=== PATIENT | male | born 1970 | race African-American/Black ===

== ENCOUNTER 2017-10-29 17:29 | Inpatient (IN) | payer OTHER ==
[~2017-10-29] VITALS: Ht 193 cm; Wt 199.0 kg
[2017-10-29 18:28] LABS: HEMATOCRIT 45.8 % (38.0-50.0); MCH 28.4 PG (29.0-34.0); MCHC 32.8 G/DL (30.0-36.0); MCV 86.7 FL (86-99); PLATELET COUNT 269 K/uL (156-360); RBC DIS.WIDTH-CV 14.8 % (11.8-14.6); RBC DIS.WIDTH-SD 46.7 % (39-53); RED BLOOD COUNT 5.28 M/uL (4.00-5.50); WHITE BLOOD COUNT 11.1 K/uL (4.1-10.2)
[2017-10-29 18:36] LABS: CHLORIDE 99 mEq/L (99-109); POTASSIUM 3.6 mEq/L (3.7-5.4); SODIUM 140 mEq/L (136-147)
[2017-10-29 18:38] LABS: GLUCOSE 112 mg/dL (70-99)
[2017-10-29 18:41] LABS: CREATININE 1.1 mg/dL (0.6-1.3)
[2017-10-29 18:42] LABS: UREA NITROGEN (BUN) 14 mg/dL (9-23)
[2017-10-29 18:43] LABS: GFR ESTIMATE (CALCULATED) > 59 mL/min/ (58.99-99999)
[2017-10-29 18:47] LABS: TROP-I INTERPRETATION NEGATIVE; TROPONIN-I 0.05 ng/mL (0.0-0.30)
[2017-10-29 20:02] LABS: THYROTROPIN (TSH) 1.5 MIU/L (0.4-5.5)
[2017-10-29 21:39] LABS: APPEARANCE CLEAR ((CLEAR)); BILIRUBIN NEGATIVE; BLOOD SMALL; COLOR STRAW ((YELLOW)); GLUCOSE (STRIP) NEGATIVE; KETONES NEGATIVE; LEUKOCYTES NEGATIVE; NITRITE NEGATIVE; PROTEIN (STRIP) NEGATIVE; SPECIFIC GRAVITY 1.009 (1.000-1.030); UROBILINOGEN 0.2 MG/DL (0.2-1.0)
[2017-10-29 22:01] LABS: BACTERIA NONE SEEN /HPF; EPITHELIAL CELLS RARE /HPF; HYALINE CASTS 0-5 /LPF; MUCUS TRACE /LPF; RED BLOOD CELLS 0-5 /HPF (0-5); WHITE BLOOD CELLS 0-5 /HPF (0-5)
[2017-10-29 22:07] LABS: AMPHETAMINE NEGATIVE (500 ng/mL); BARBITURATES NEGATIVE (200 ng/mL); BENZODIAZEPINES NEGATIVE (150 ng/mL); BUPRENORPHINE NEGATIVE (10 ng/mL); COCAINE NEGATIVE (150 ng/mL); METHADONE NEGATIVE (200 ng/mL); METHAMPHETAMINE NEGATIVE (500 ng/mL); OPIATES (MORPHINE) NEGATIVE (100 ng/mL); OXYCODONE NEGATIVE (100 ng/mL); PHENCYCLIDINE NEGATIVE (25 ng/mL); PROPOXYPHENE NEGATIVE (300 ng/mL); THC CANNABINOIDS PRESUMPTIVE POSITIVE (50 ng/mL); TRICYCLIC ANTIDEPRESSANTS NEGATIVE (300 ng/mL)
[2017-10-30] VITALS (15 sets, daily range): BP systolic 147–234; BP diastolic 27–127
[2017-10-30 02:39] LABS: TROP-I INTERPRETATION NEGATIVE; TROPONIN-I 0.04 ng/mL (0.0-0.30)
[2017-10-30 08:53] LABS: HEMATOCRIT 47.4 % (38.0-50.0); HEMOGLOBIN 14.9 G/DL (12.5-16.6); MCHC 31.4 G/DL (30.0-36.0); MCV 88.9 FL (86-99); PLATELET COUNT 265 K/uL (156-360); RBC DIS.WIDTH-CV 15.4 % (11.8-14.6); RBC DIS.WIDTH-SD 49.7 % (39-53); RED BLOOD COUNT 5.33 M/uL (4.00-5.50); WHITE BLOOD COUNT 12.8 K/uL (4.1-10.2)
[2017-10-30 09:15] LABS: CHLORIDE 99 MEQ/L (99-109); CREATININE 1.1 MG/DL (0.6-1.3); GFR ESTIMATE (CALCULATED) > 59 mL/min/ (58.99-99999); GLUCOSE 127 mg/dL (70-99); POTASSIUM 4.6 MEQ/L (3.7-5.4); SODIUM 140 MEQ/L (136-147); UREA NITROGEN (BUN) 21 mg/dL (9-23)
[2017-10-30 13:49] LABS: ALBUMIN 4.1 G/DL (3.2-4.8); ALKALINE PHOSPHATASE 103 IU/L (3-129); ALT (GPT) 24 IU/L (3-49); AST (GOT) 17 IU/L (2-34); DIRECT BILIRUBIN 0.1 mg/dL (0.0-0.3); TOTAL BILIRUBIN 0.3 MG/DL (0.0-1.0); TOTAL PROTEIN 7.1 G/DL (6.4-8.3)
[2017-10-31] VITALS (7 sets, daily range): BP systolic 143–201; BP diastolic 76–104
[2017-10-31 06:25] LABS: BASOPHIL (%) 0.2 % (0-1); EOSINOPHIL (%) 1.7 % (0-5); EOSINOPHIL COUNT 0.3 K/uL (0-0.3); HEMATOCRIT 44.3 % (38.0-50.0); HEMOGLOBIN 13.8 G/DL (12.5-16.6); IMMATURE GRANULOCYTE (%) 0.4 % (0.0-0.7); LYMPHOCYTE (%) 13.4 % (15-42); MCH 27.6 PG (29.0-34.0); MCHC 31.2 G/DL (30.0-36.0); MCV 88.6 FL (86-99); MONOCYTE (%) 5.9 % (3-12); MONOCYTE COUNT 0.9 K/uL (0-0.8); NEUTROPHIL (%) 78.4 % (45-76); NEUTROPHIL COUNT 11.7 K/uL (1.8-6.4); PLATELET COUNT 255 K/uL (156-360); RBC DIS.WIDTH-CV 15.4 % (11.8-14.6)
[2017-10-31 06:57] LABS: CHLORIDE 99 MEQ/L (99-109); GFR ESTIMATE (CALCULATED) > 59 mL/min/ (58.99-99999); GLUCOSE 125 mg/dL (70-99); POTASSIUM 3.9 MEQ/L (3.7-5.4); SODIUM 139 MEQ/L (136-147); UREA NITROGEN (BUN) 22 mg/dL (9-23)
[2017-11-01 00:01] VITALS: BP 132/65
[2017-11-01 04:54] VITALS: BP 147/67
[2017-11-01 06:10] LABS: BASOPHIL (%) 0.4 % (0-1); EOSINOPHIL (%) 5.1 % (0-5); EOSINOPHIL COUNT 0.5 K/uL (0-0.3); HEMATOCRIT 44.7 % (38.0-50.0); HEMOGLOBIN 13.6 G/DL (12.5-16.6); IMMATURE GRANULOCYTE (%) 0.3 % (0.0-0.7); LYMPHOCYTE (%) 26.9 % (15-42); LYMPHOCYTE COUNT 2.6 K/uL (1.0-2.8); MCH 26.9 PG (29.0-34.0); MCHC 30.4 G/DL (30.0-36.0); MCV 88.3 FL (86-99); MONOCYTE (%) 8.3 % (3-12); MONOCYTE COUNT 0.8 K/uL (0-0.8); NEUTROPHIL COUNT 5.7 K/uL (1.8-6.4); PLATELET COUNT 259 K/uL (156-360); RBC DIS.WIDTH-CV 15.4 % (11.8-14.6); RBC DIS.WIDTH-SD 50.7 % (39-53); RED BLOOD COUNT 5.06 M/uL (4.00-5.50); WHITE BLOOD COUNT 9.7 K/uL (4.1-10.2)
[2017-11-01 06:33] LABS: CHLORIDE 100 MEQ/L (99-109); CREATININE 1.2 MG/DL (0.6-1.3); GFR ESTIMATE (CALCULATED) > 59 mL/min/ (58.99-99999); GLUCOSE 119 mg/dL (70-99); POTASSIUM 4.2 MEQ/L (3.7-5.4); SODIUM 139 MEQ/L (136-147); UREA NITROGEN (BUN) 26 mg/dL (9-23)
[2017-11-01 08:50] VITALS: BP 172/92
[2017-11-01 12:21] VITALS: BP 163/87
[2017-11-01] MEDS ORDERED: CARVEDILOL12.5 MG PO (12:27)
[2017-11-01] MEDS ORDERED: CLONIDINE HCL0.1 MG PO (12:27)
[2017-11-01] MEDS ORDERED: LOSARTAN POTASS50 MG PO (12:27)
[2017-11-01] MEDS ORDERED: AMLODIPINE BESY10 MG PO (12:27)
[2017-11-01] MEDS ORDERED: HYDROCHLOROTH12.5 M3 PO (12:27)
[2017-11-01] MEDS ORDERED: APRESOLINE50 MG PO (12:27)
[2017-11-01] MEDS ORDERED: DOCUSATE SODIU100 MG PO (12:27)
== END 2017-11-01 16:28 | disposition home or self-care (01) | DRG 305 ==
LOC: EME 17:29 → 4EAST 21:01 → EDOF 21:01 → ENRESERV 21:02 → 4EAST 10-30 00:27
PROVIDERS: Emergency Medicine; Hospitalist; Internal Medicine; Nurse Practitioner Family
PROC: 5A09357 Assistance with Respiratory Ventilation, Less than 24 Consecutive Hours, Continuous Positive Airway Pressure (ICD-10-PCS; principal; 2017-10-30)
DX: I16.1 Hypertensive emergency (principal); R00.1 Bradycardia, unspecified; R06.03 Acute respiratory distress; E66.2 Morbid (severe) obesity with alveolar hypoventilation; Z68.43 Body mass index [BMI] 50.0-59.9, adult; Z91.14 Patient's other noncompliance with medication regimen; R20.0 Anesthesia of skin; R51 Headache; G89.29 Other chronic pain; M19.90 Unspecified osteoarthritis, unspecified site; M79.1 Myalgia; F32.9 Major depressive disorder, single episode, unspecified; F41.9 Anxiety disorder, unspecified; Z82.49 Family history of ischemic heart disease and other diseases of the circulatory system; F12.90 Cannabis use, unspecified, uncomplicated; F17.210 Nicotine dependence, cigarettes, uncomplicated; N52.9 Male erectile dysfunction, unspecified
CPT/HCPCS: 70450; 71046; 74176; 80048; 80076; 81003; 83880; 84443; 84484; 84999; 85025; 85027; 87070; 87205; 93005; 93306; 94660; 99281; 99285; J0360; J1644; J1940; J2920; S0028

== ENCOUNTER 2017-11-23 10:12 | Inpatient (IN) | payer OTHER ==
[~2017-11-23] VITALS: Ht 193 cm; Wt 203.7 kg
[~2017-11-23 10:12] MED LIST: AMLODIPINE BESY10 MG PO; APRESOLINE50 MG PO; CARVEDILOL12.5 MG PO; CLONIDINE HCL0.1 MG PO; DOCUSATE SODIU100 MG PO; HYDROCHLOROTH12.5 M3 PO; LOSARTAN POTASS50 MG PO
[2017-11-23 10:58] LABS: HEMATOCRIT 42.5 % (38.0-50.0); HEMOGLOBIN 13.5 G/DL (12.5-16.6); MCH 27.8 PG (29.0-34.0); MCHC 31.8 G/DL (30.0-36.0); MCV 87.4 FL (86-99); PLATELET COUNT 232 K/uL (156-360); RBC DIS.WIDTH-CV 14.8 % (11.8-14.6); RBC DIS.WIDTH-SD 47.7 % (39-53); RED BLOOD COUNT 4.86 M/uL (4.00-5.50); WHITE BLOOD COUNT 9.1 K/uL (4.1-10.2)
[2017-11-23 11:07] LABS: ALBUMIN 3.7 g/dL (3.2-4.8)
[2017-11-23 11:08] LABS: CHLORIDE 98 mEq/L (99-109); POTASSIUM 3.8 mEq/L (3.7-5.4); SODIUM 140 mEq/L (136-147)
[2017-11-23 11:10] LABS: GLUCOSE 111 mg/dL (70-99); TOTAL PROTEIN 6.9 g/dL (6.4-8.3)
[2017-11-23 11:12] LABS: TOTAL BILIRUBIN 0.5 mg/dL (0.0-1.0)
[2017-11-23 11:14] LABS: ALKALINE PHOSPHATASE 106 IU/L (3-129); CREATININE 0.9 mg/dL (0.6-1.3); GFR ESTIMATE (CALCULATED) > 59 mL/min/ (58.99-99999)
[2017-11-23 11:15] LABS: AST (GOT) 21 IU/L (2-34); UREA NITROGEN (BUN) 11 mg/dL (9-23)
[2017-11-23 11:17] LABS: ALT (GPT) 32 IU/L (3-49)
[2017-11-23 11:22] LABS: TROP-I INTERPRETATION NEGATIVE; TROPONIN-I 0.02 ng/mL (0.0-0.30)
[2017-11-23 14:08] LABS: BASE EXCESS 8.5 mEq/L (-3 to +3); BICARBONATE 35.7 mEq/L (22-26); CARBOXY HGB 4.9 % (0-5); COMMENTS - BLOOD GASES A+C+; METHEMOGLOBIN 0.7 % (0-1.5); PCO2 59 mm Hg (35-45); PO2 57 mm Hg (80-100); SITE RR; TOTAL RESP RATE 20 resp/min; pH 7.39 (7.35-7.45)
[2017-11-23] MEDS ORDERED: ASPIRIN EC325 MG PO (15:21)
[2017-11-23 19:03] VITALS: BP 185/100
[2017-11-23 23:57] VITALS: BP 159/87
[2017-11-24 04:13] VITALS: BP 171/87
[2017-11-24 06:49] LABS: HEMATOCRIT 45.8 % (38.0-50.0); HEMOGLOBIN 14.2 G/DL (12.5-16.6); MCH 27.1 PG (29.0-34.0); MCV 87.4 FL (86-99); PLATELET COUNT 262 K/uL (156-360); RBC DIS.WIDTH-CV 14.9 % (11.8-14.6); RBC DIS.WIDTH-SD 47.9 % (39-53); RED BLOOD COUNT 5.24 M/uL (4.00-5.50); WHITE BLOOD COUNT 13.5 K/uL (4.1-10.2)
[2017-11-24 07:07] VITALS: BP 145/90
[2017-11-24 07:26] LABS: CHLORIDE 97 MEQ/L (99-109); GLUCOSE 152 mg/dL (70-99); POTASSIUM 4.4 MEQ/L (3.7-5.4); SODIUM 136 MEQ/L (136-147); UREA NITROGEN (BUN) 16 mg/dL (9-23)
[2017-11-24 08:02] LABS: CREATININE 0.9 MG/DL (0.6-1.3); GFR ESTIMATE (CALCULATED) > 59 mL/min/ (58.99-99999)
[2017-11-24 12:46] LABS: PHOSPHORUS 4.3 mg/dL (2.5-4.9)
[2017-11-24 16:45] VITALS: BP 182/100
[2017-11-24 19:54] VITALS: BP 178/86
[2017-11-25] VITALS: BP 161/65
[2017-11-25 03:24] VITALS: BP 179/84
[2017-11-25 07:08] VITALS: BP 154/92
[2017-11-25 09:33] LABS: BASOPHIL (%) 0.1 % (0-1); EOSINOPHIL (%) 0 % (0-5); HEMATOCRIT 46.2 % (38.0-50.0); HEMOGLOBIN 14.3 G/DL (12.5-16.6); IMMATURE GRANULOCYTE (%) 0.4 % (0.0-0.7); LYMPHOCYTE (%) 4.9 % (15-42); LYMPHOCYTE COUNT 0.8 K/uL (1.0-2.8); MCH 27.6 PG (29.0-34.0); MONOCYTE (%) 3.7 % (3-12); MONOCYTE COUNT 0.6 K/uL (0-0.8); NEUTROPHIL (%) 90.9 % (45-76); NEUTROPHIL COUNT 15.1 K/uL (1.8-6.4); PLATELET COUNT 250 K/uL (156-360); RBC DIS.WIDTH-CV 15.4 % (11.8-14.6); RBC DIS.WIDTH-SD 50.1 % (39-53); RED BLOOD COUNT 5.19 M/uL (4.00-5.50); WHITE BLOOD COUNT 16.6 K/uL (4.1-10.2)
[2017-11-25 10:01] LABS: CHLORIDE 95 MEQ/L (99-109); GFR ESTIMATE (CALCULATED) > 59 mL/min/ (58.99-99999); GLUCOSE 121 mg/dL (70-99); MAGNESIUM 2.1 mg/dl (1.3-2.7); POTASSIUM 4.5 MEQ/L (3.7-5.4); SODIUM 139 MEQ/L (136-147); UREA NITROGEN (BUN) 23 mg/dL (9-23)
[2017-11-25 11:34] VITALS: BP 166/102
[2017-11-25 15:04] VITALS: BP 155/77
[2017-11-25 19:22] VITALS: BP 184/88
[2017-11-26] VITALS (7 sets, daily range): BP systolic 165–179; BP diastolic 81–98
[2017-11-26 08:06] LABS: BASE EXCESS 13.8 mEq/L (-3 to +3); CARBOXY HGB 2.3 % (0-5); METHEMOGLOBIN 1.4 % (0-1.5); pH 7.39 (7.35-7.45)
[2017-11-26 08:07] LABS: BICARBONATE 42.4 mEq/L (22-26); COMMENTS - BLOOD GASES A+C+; DEVICE BIPAP; O2 FLOW 3 L/MIN; PCO2 70 mm Hg (35-45); PO2 73 mm Hg (80-100); SITE RR; TOTAL RESP RATE 27 resp/min
[2017-11-26 08:59] LABS: BASOPHIL (%) 0.1 % (0-1); EOSINOPHIL (%) 0 % (0-5); HEMATOCRIT 46.3 % (38.0-50.0); HEMOGLOBIN 14.1 G/DL (12.5-16.6); IMMATURE GRANULOCYTE (%) 0.7 % (0.0-0.7); LYMPHOCYTE (%) 6.9 % (15-42); LYMPHOCYTE COUNT 1.2 K/uL (1.0-2.8); MCH 26.9 PG (29.0-34.0); MCHC 30.5 G/DL (30.0-36.0); MCV 88.2 FL (86-99); MONOCYTE (%) 4.7 % (3-12); MONOCYTE COUNT 0.8 K/uL (0-0.8); NEUTROPHIL (%) 87.6 % (45-76); NEUTROPHIL COUNT 14.8 K/uL (1.8-6.4); PLATELET COUNT 273 K/uL (156-360); RBC DIS.WIDTH-CV 15.2 % (11.8-14.6); RBC DIS.WIDTH-SD 49.1 % (39-53); RED BLOOD COUNT 5.25 M/uL (4.00-5.50); WHITE BLOOD COUNT 16.9 K/uL (4.1-10.2)
[2017-11-26 10:01] LABS: CHLORIDE 97 MEQ/L (99-109); CREATININE 1.1 MG/DL (0.6-1.3); GFR ESTIMATE (CALCULATED) > 59 mL/min/ (58.99-99999); GLUCOSE 113 mg/dL (70-99); MAGNESIUM 2.2 mg/dl (1.3-2.7); POTASSIUM 4.2 MEQ/L (3.7-5.4); SODIUM 140 MEQ/L (136-147); UREA NITROGEN (BUN) 28 mg/dL (9-23)
[2017-11-27 03:51] VITALS: BP 153/95
[2017-11-27 07:59] VITALS: BP 154/98
[2017-11-27 12:34] VITALS: BP 182/97
[2017-11-27 16:00] VITALS: BP 129/71; BP 176/104
[2017-11-27 23:45] VITALS: BP 167/99
[2017-11-28 03:45] VITALS: BP 187/115
[2017-11-28 06:22] LABS: HEMATOCRIT 46.3 % (38.0-50.0); HEMOGLOBIN 14.5 G/DL (12.5-16.6); MCH 27.8 PG (29.0-34.0); MCHC 31.3 G/DL (30.0-36.0); MCV 88.7 FL (86-99); NRBC (%) 0.1 /100 WBC (0-0); PLATELET COUNT 284 K/uL (156-360); RBC DIS.WIDTH-CV 15.4 % (11.8-14.6); RBC DIS.WIDTH-SD 49.5 % (39-53); RED BLOOD COUNT 5.22 M/uL (4.00-5.50); WHITE BLOOD COUNT 17.3 K/uL (4.1-10.2)
[2017-11-28 06:46] LABS: CHLORIDE 97 MEQ/L (99-109); CREATININE 1.2 MG/DL (0.6-1.3); GFR ESTIMATE (CALCULATED) > 59 mL/min/ (58.99-99999); GLUCOSE 146 mg/dL (70-99); POTASSIUM 3.8 MEQ/L (3.7-5.4); SODIUM 142 MEQ/L (136-147); UREA NITROGEN (BUN) 27 mg/dL (9-23)
[2017-11-28 07:09] VITALS: BP 181/89
[2017-11-28 08:26] LABS: BASE EXCESS 11.7 mEq/L (-3 to +3); BICARBONATE 39.6 mEq/L (22-26); CARBOXY HGB 1.9 % (0-5); METHEMOGLOBIN 1.3 % (0-1.5); PO2 79 mm Hg (80-100)
[2017-11-28 08:27] LABS: COMMENTS - BLOOD GASES +C; DEVICE NC; O2 FLOW 2 L/MIN; PCO2 64 mm Hg (35-45); SITE LR +A; TOTAL RESP RATE 18 resp/min
[2017-11-28 15:02] VITALS: BP 165/78
[2017-11-28 19:43] VITALS: BP 169/81
[2017-11-28 21:48] VITALS: BP 150/99
[2017-11-29 00:20] VITALS: BP 174/87
[2017-11-29 03:42] VITALS: BP 176/84
[2017-11-29 06:09] LABS: HEMATOCRIT 46.5 % (38.0-50.0); HEMOGLOBIN 14.1 G/DL (12.5-16.6); MCH 26.7 PG (29.0-34.0); MCHC 30.3 G/DL (30.0-36.0); MCV 88.1 FL (86-99); PLATELET COUNT 288 K/uL (156-360); RBC DIS.WIDTH-CV 15.5 % (11.8-14.6); RBC DIS.WIDTH-SD 49.9 % (39-53); RED BLOOD COUNT 5.28 M/uL (4.00-5.50); WHITE BLOOD COUNT 12.2 K/uL (4.1-10.2)
[2017-11-29 06:29] LABS: CHLORIDE 96 MEQ/L (99-109); CREATININE 1.3 MG/DL (0.6-1.3); GFR ESTIMATE (CALCULATED) > 59 mL/min/ (58.99-99999); POTASSIUM 3.5 MEQ/L (3.7-5.4); SODIUM 141 MEQ/L (136-147); UREA NITROGEN (BUN) 29 mg/dL (9-23)
[2017-11-29 06:35] LABS: GLUCOSE 107 mg/dL (70-99)
[2017-11-29 08:08] VITALS: BP 119/59
[2017-11-29 12:37] VITALS: BP 127/63
[2017-11-29 16:58] VITALS: BP 144/76
[2017-11-29 20:02] VITALS: BP 146/78
[2017-11-30 00:29] VITALS: BP 141/74
[2017-11-30 05:38] VITALS: BP 157/97
[2017-11-30 06:06] LABS: HEMATOCRIT 43.3 % (38.0-50.0); HEMOGLOBIN 13.4 G/DL (12.5-16.6); MCH 27.6 PG (29.0-34.0); MCHC 30.9 G/DL (30.0-36.0); MCV 89.3 FL (86-99); PLATELET COUNT 264 K/uL (156-360); RBC DIS.WIDTH-CV 15.7 % (11.8-14.6); RBC DIS.WIDTH-SD 51.4 % (39-53); RED BLOOD COUNT 4.85 M/uL (4.00-5.50); WHITE BLOOD COUNT 14.6 K/uL (4.1-10.2)
[2017-11-30 06:30] LABS: CHLORIDE 98 MEQ/L (99-109); CREATININE 1.1 MG/DL (0.6-1.3); GFR ESTIMATE (CALCULATED) > 59 mL/min/ (58.99-99999); GLUCOSE 96 mg/dL (70-99); POTASSIUM 4.2 MEQ/L (3.7-5.4); SODIUM 143 MEQ/L (136-147); UREA NITROGEN (BUN) 28 mg/dL (9-23)
[2017-11-30 07:52] VITALS: BP 140/72
[2017-11-30 15:40] VITALS: BP 176/83
[2017-11-30 23:48] VITALS: BP 174/91
[2017-12-01 06:08] LABS: HEMOGLOBIN 12.8 G/DL (12.5-16.6); MCH 27.1 PG (29.0-34.0); MCHC 30.5 G/DL (30.0-36.0); MCV 88.8 FL (86-99); PLATELET COUNT 257 K/uL (156-360); RBC DIS.WIDTH-CV 15.5 % (11.8-14.6); RBC DIS.WIDTH-SD 51.1 % (39-53); RED BLOOD COUNT 4.73 M/uL (4.00-5.50); WHITE BLOOD COUNT 18.9 K/uL (4.1-10.2)
[2017-12-01 06:36] LABS: CHLORIDE 99 MEQ/L (99-109); GFR ESTIMATE (CALCULATED) > 59 mL/min/ (58.99-99999); GLUCOSE 122 mg/dL (70-99); POTASSIUM 4.6 MEQ/L (3.7-5.4); SODIUM 140 MEQ/L (136-147); UREA NITROGEN (BUN) 28 mg/dL (9-23)
[2017-12-01 07:20] VITALS: BP 157/75
[2017-12-01] MEDS ORDERED: SPIRIVA RESPIMAT4 GM IH (08:03)
[2017-12-01] MEDS ORDERED: BUPROPION HCL150 M2 PO (08:10)
[2017-12-01] MEDS ORDERED: GABAPENTIN100 MG PO (08:10)
[2017-12-01] MEDS ORDERED: FUROSEMIDE80 MG PO (08:11)
[2017-12-01] MEDS ORDERED: FLONASE16 G1 BOTH NARES (08:12)
[2017-12-01] MEDS ORDERED: PREDNISONE20 MG PO (08:13)
[2017-12-01] MEDS ORDERED: MEDROL DOSEPAK4 MG PO (08:14)
[2017-12-01] MEDS ORDERED: VENTOLIN HFA18 GM IH (10:12)
[2017-12-01] MEDS ORDERED: DULERA 100 MCG/13 GM IH (10:22)
[2017-12-01 15:25] VITALS: BP 166/93
[2017-12-02 00:28] VITALS: BP 182/101
[2017-12-02 00:44] VITALS: BP 181/88
[2017-12-02 06:40] LABS: HEMATOCRIT 42.9 % (38.0-50.0); HEMOGLOBIN 13.1 G/DL (12.5-16.6); MCH 26.8 PG (29.0-34.0); MCHC 30.5 G/DL (30.0-36.0); MCV 87.9 FL (86-99); PLATELET COUNT 256 K/uL (156-360); RBC DIS.WIDTH-CV 15.4 % (11.8-14.6); RBC DIS.WIDTH-SD 50.2 % (39-53); RED BLOOD COUNT 4.88 M/uL (4.00-5.50); WHITE BLOOD COUNT 16.6 K/uL (4.1-10.2)
[2017-12-02 07:02] LABS: CHLORIDE 95 MEQ/L (99-109); GFR ESTIMATE (CALCULATED) > 59 mL/min/ (58.99-99999); GLUCOSE 178 mg/dL (70-99); POTASSIUM 4.7 MEQ/L (3.7-5.4); SODIUM 138 MEQ/L (136-147); UREA NITROGEN (BUN) 25 mg/dL (9-23)
[2017-12-02 07:49] VITALS: BP 156/95
[2017-12-02] MEDS ORDERED: AMOX TR-K CLV1 EAC4 PO (12:12)
[2017-12-02] MEDS ORDERED: APRESOLINE50 MG PO (12:13)
[2017-12-02] MEDS ORDERED: LORAZEPAM0.5 MG PO (13:03)
[2017-12-02] MEDS ORDERED: ENDOCET 5-3251 EACH PO (13:03)
[2017-12-02] MEDS ORDERED: CLONIDINE HCL0.2 MG PO (13:03)
== END 2017-12-02 14:36 | disposition home or self-care (01) | DRG 190 ==
LOC: EME 10:12 → 5SOUTH 13:20 → EDOF 13:20 → ENRESERV 13:27 → 5SOUTH 16:32 → ENPENDDIS 12-02 12:30 → 5SOUTH 12-02 14:36
PROVIDERS: Emergency Medicine; Hospitalist; Internal Medicine; Internal Medicine Pulmonary Disease; Physician Assistant; Physician Assistant Medical
PROC: 5A09357 Assistance with Respiratory Ventilation, Less than 24 Consecutive Hours, Continuous Positive Airway Pressure (ICD-10-PCS; principal; 2017-11-25)
DX: J44.1 Chronic obstructive pulmonary disease with (acute) exacerbation (principal); J45.901 Unspecified asthma with (acute) exacerbation; J96.21 Acute and chronic respiratory failure with hypoxia; J96.22 Acute and chronic respiratory failure with hypercapnia; E66.2 Morbid (severe) obesity with alveolar hypoventilation; Z68.43 Body mass index [BMI] 50.0-59.9, adult; I11.0 Hypertensive heart disease with heart failure; I50.30 Unspecified diastolic (congestive) heart failure; E87.4 Mixed disorder of acid-base balance; E87.6 Hypokalemia; T50.1X5A Adverse effect of loop [high-ceiling] diuretics, initial encounter; D72.828 Other elevated white blood cell count; T38.0X5A Adverse effect of glucocorticoids and synthetic analogues, initial encounter; J20.9 Acute bronchitis, unspecified; J44.0 Chronic obstructive pulmonary disease with (acute) lower respiratory infection; G89.29 Other chronic pain; M25.562 Pain in left knee; M54.30 Sciatica, unspecified side; G43.909 Migraine, unspecified, not intractable, without status migrainosus; F17.210 Nicotine dependence, cigarettes, uncomplicated; Z71.6 Tobacco abuse counseling; F41.9 Anxiety disorder, unspecified; F32.9 Major depressive disorder, single episode, unspecified; F12.90 Cannabis use, unspecified, uncomplicated; Z91.19 Patient's noncompliance with other medical treatment and regimen; Z82.49 Family history of ischemic heart disease and other diseases of the circulatory system
CPT/HCPCS: 36600; 70360; 71046; 80048; 80053; 82803; 83036; 83735; 83880; 84100; 84484; 85025; 85027; 93005; 93970; 94010; 94640; 94640 76; 94660; 94799; 99202; 99281; 99284; C1753; J0360; J0696; J1650; J1940; J2270; J2930; J7512